=== PATIENT | male | born 2000 | race Caucasian/White ===

== ENCOUNTER 2024-10-17 03:14 | Emergency (ER) | payer OTHER ==
[2024-10-17] MEDS ORDERED: Ketorolac Tromethamine 30 MG (1 mL) VIAL ONE (03:39)
== END 2024-10-17 04:12 | disposition home or self-care (01) ==
LOC: ERS 03:14
DX: R07.89 Other chest pain (principal); F17.210 Nicotine dependence, cigarettes, uncomplicated
CPT/HCPCS: 71045; 96372; J1885